=== PATIENT | female | born 1985 | race Caucasian/White ===

== ENCOUNTER 2020-09-11 10:57 | Outpatient (CLI) | payer OTHER ==
--- NOTE | 2020-09-11 11:40 | XRAY Report ---
PROCEDURE: Chest 2 View X-Ray INDICATIONS: PNEUMONIA TECHNIQUE: 2 view(s) of the chest. COMPARISON: None. FINDINGS: Surgical changes and devices: Bilateral chest wall clips are seen. Bilateral prior mastectomy is pres umed. There is a right-sided chest port, with the tip within the inferior aspect of the superior vena cava, near the cavoatrial junction. Lungs and pleura: No pleural effusions or pneumothorax. Lungs are clear. Mediastinum: Mediastinal contours are normal. Heart size is normal. Bones and chest wall: No suspicious bony abnormalities. S-shaped scoliotic curvature is incidentally noted. Soft tissues appear unremarkable. IMPRESSION: Clear lungs, without focal infiltrates. Right-sided chest port, with the tip within the inferior aspect of the superior vena cava. Chest wall postoperative changes are seen. Bilateral mastectomy is presumed. Reviewed by: Brigido Barakat MD on 09/11/2020 10:39 AM [facility] Approved by: Brigido Barakat MD on 09/11/2020 10:39 AM [facility] Station ID: [id number]
== END 2020-09-11 10:58 | disposition home or self-care (01) ==
LOC: DI.N 10:57
PROVIDERS: ATTEND Nurse Practitioner
DX: J18.9 Pneumonia, unspecified organism (principal); Z20.822 Contact with and (suspected) exposure to COVID-19; Z95.828 Presence of other vascular implants and grafts

== ENCOUNTER 2020-12-03 08:00 | Outpatient (CLI) | payer OTHER ==
--- NOTE | 2020-12-03 12:49 | XRAY Report ---
PROCEDURE: Chest 2 View X-Ray INDICATIONS: COUGH TECHNIQUE: 2 view(s) of the chest. COMPARISON: None. FINDINGS: Surgical changes and devices: Right chest wall Port-A-Cath tip is in the region of SVC. Surgical clip s are noted in bilateral chest wall and axilla. Lungs and pleura: No pleural effusions or pneumothorax. Lungs are clear. Mediastinum: Mediastinal contours are normal. Heart size is normal. Bones and chest wall: No suspicious bony abnormalities. Soft tissues appear unremarkable. IMPRESSION: No acute cardiopulmonary pathology. Reviewed by: Tejas Pyle MD on 12/03/2020 12:47 PM PDT Approved by: Tejas Pyle MD on 12/03/2020 12:47 PM PDT Station ID: [id number]
== END 2020-12-03 23:59 | disposition home or self-care (01) ==
LOC: DI.N 08:00
PROVIDERS: ATTEND Family Medicine
DX: R05.9 Cough, unspecified (principal)

== ENCOUNTER 2020-12-03 10:57 | Outpatient (CLI) | payer OTHER | END 2020-12-03 23:59 | disposition home or self-care (01) | LOC: LAB.N 10:57 | PROVIDERS: ATTEND Family Medicine | DX: R05.9 Cough, unspecified (principal); Z20.822 Contact with and (suspected) exposure to COVID-19 ==

== ENCOUNTER 2020-12-20 08:00 | Outpatient (CLI) | payer OTHER | END 2020-12-20 23:59 | disposition home or self-care (01) | LOC: LAB.N 08:00 | PROVIDERS: ATTEND Family Medicine | DX: R07.0 Pain in throat (principal); Z20.822 Contact with and (suspected) exposure to COVID-19 | CPT/HCPCS: 87070 ==

== ENCOUNTER 2022-02-21 10:05 | Outpatient (CLI) | payer OTHER ==
--- NOTE | 2022-02-21 18:23 | XRAY Report ---
PROCEDURE: Chest 1 View X-Ray INDICATIONS: PAIN IN RIGHT SHOULDER TECHNIQUE: One view of the chest was acquired. COMPARISON: None. FINDINGS: Surgical changes and devices: None. Lungs and pleura: No pleural effusions or pneumothorax. Lungs are clear. Mediastinum: Mediastinal contours appear normal. Heart size is normal. Bones and chest wall: No suspicious bony lesions. Overlying soft tissues appear unremarkable. Calc ific tendinitis is noted at the right shoulder. IMPRESSION: No acute pulmonary process. Reviewed by: Marta Godoy MD on 02/21/2022 6:21 PM PST Approved by: Marta Godoy MD on 02/21/2022 6:21 PM [facility] Station ID: [id number]
--- NOTE | 2022-02-21 18:23 | XRAY Report ---
PROCEDURE: Shoulder 3 View RT INDICATIONS: PAIN IN RIGHT SHOULDER TECHNIQUE: 3 views of the shoulder were acquired. COMPARISON: None. FINDINGS: Bones: No fractures or dislocations. No suspicious bony lesions. Visualized ribs appear intact. Soft tissues: No suspicious soft tissue calcifications. Right shoulder calcific tendinitis is prese nt. IMPRESSION: Right shoulder calcific tendinitis. Reviewed by: Marta Godoy MD on 02/21/2022 6:22 PM PST Approved by: Marta Godoy MD on 02/21/2022 6:22 PM PST Station ID: [id number]
== END 2022-02-21 10:06 | disposition home or self-care (01) ==
LOC: DI 10:05
PROVIDERS: ATTEND Nurse Practitioner
DX: M75.31 Calcific tendinitis of right shoulder (principal)

== ENCOUNTER 2022-02-21 17:44 | Emergency (ER) | payer OTHER ==
--- OUTSIDE RECORDS SUMMARY | 2022-02-21 18:00 | EXTERNAL MEDICAL SUMMARY RPT | Continuity of Care Document ---
:1985 Author Organization [facility] Address [address] [place] [address] Phone Care Team Providers Name Role Phone Maribel Oleary Unavailable Unavailable Allergies and Intolerances date description facility type (no date) No Known Drug Allergies [facility] (unkn own) Encounters No information. Functional Status No information. Immunizations No information. Medications No information. Problems date description facility 2022-02-21 00:00 Patient left before evaluation by [facility] Procedures No information. Results/Labs No information. Social History date description facility 2022-02-20 00:00 Never smoked tobacco (finding) [facility] Vital Signs date measurement value units 2022-02-20 00:00 BMI 22.1 kg/m2 2022-02-20 00:00 BP_diastolic 77 mmHg 2022-02-20 00:00 BP_systolic 139 mmHg 2022-02-20 00:00 heart_rate 105 /min 2022-02-20 00:00 height_metric 165.1 cm 2022-02-20 00:00 height_standard 65 in 2022-02-20 00:00 o2_saturation 100 % 2022-02-20 00:00 respiration_rate 16 /min 2022-02-20 00:00 temperature_metric 36.67 C 2022-02-20 00:00 temperature_standard 98 F 2022-02-20 00:00 weight_metric 60.32 kg 2022-02-20 00:00 weight_standard 132.98 lb
[2022-02-21] MEDS ORDERED: KETOROLAC 30 MG/ML VIAL IM STA (21:22)
--- NOTE | 2022-02-21 21:22 | ED Physician Documentation ---
History of Present Illness - Stated complaint Stated Complaint: R ARM PX - Chief complaint Chief Complaint: Ext Problem - History obtained from History obtained from: Patient - Additonal information Additional information: 36-year-old woman presents with new onset right shoulder pain for the past 2 days without specific injury. Had x-rays done today but does not know the results. Aching, constant, located in the shoulder and radiating downward, worse with range of motion. Review of Systems Musculoskeletal: reports: Joint pain PD PAST MEDICAL HISTORY - Past Medical History Past Medical History: Yes Cardiovascular: None Respiratory: Asthma Neuro: None Endocrine/Autoimmune: None GI: None ORGANISATION AND METHODS ANALYST: None : None HEENT: None Psych: None Musculoskeletal: None Derm: None - Past Surgical History Past Surgical History: Yes /ORGANISATION AND METHODS ANALYST: section - Present Medications Home Medications: Ambulatory Orders Medication Instructions Recorded Confirmed Acyclovir 400 mg PO DAILY 08/20/13 08/20/13 Albuterol [Ventolin Hfa] 1 puffs INH DAILY 08/20/13 08/20/13 predniSONE [Deltasone] 60 mg PO DAILY 5 Days tablet 08/20/13 Benzonatate [Tessalon Perle] 100 mg PO BID PRN #20 capsule 08/21/13 Ketorolac [Toradol] 10 mg PO Q6H PRN #30 tablet 02/21/22 - Allergies Allergies/Adverse Reactions: Allergies Allergy/AdvReac Type Severity Reaction Status Date / Time mirtazapine Allergy Anxiety Verified 02/21/22 17:52 paclitaxel Allergy Edema Verified 02/21/22 17:52 - Social History Does the pt smoke?: No Smoking Status: Never smoker Does the pt drink ETOH?: No - Immunizations Immunizations are current?: Yes - POLST Patient has POLST: No PD ED PE NORMAL - Vitals Vital signs reviewed: Yes - General General: Alert and oriented X 3, No acute distress, Well developed/nourished - HEENT HEENT: Atraumatic, PERRL, EOMI - Derm Derm: Normal color, Warm and dry - Extremities Extremities: Other (Right shoulder tender with range of motion. 2+ bilateral radial pulses. Normal sensation and movement) Results - Vitals Vitals: Vital Signs - 24 hr 02/21/22 02/21/22 17:47 21:06 Temperature 37.3 C Heart Rate 99 Respiratory 18 15 Rate Blood Pressure 124/95 H O2 Saturation 100 Oxygen O2 Source Room air PD Medical Decision Making - ED course ED course: 36-year-old woman presents with right Calcific tendinitis of shoulder on x-ray imaging done earlier today. Symptomatic care discussed and return precautions lavelle hatch. Plan to follow-up with primary care provider for referral to physical therapy as needed. Departure - Departure Disposition: Home, Self Care Clinical Impression: Calcific tendinitis, Shoulder pain Condition: Stable Instructions: ED Tendinitis Calcific Prescriptions: Ketorolac [Toradol] 10 mg PO Q6H PRN #30 tablet PRN Reason: Pain Comments: You are seen in the emergency department for positive tenderness to pressure. Please follow-up with your primary care provider for possible referral to physical therapy. Toradol, an antiinflammatory pain medicine was sent electronically to [facility] in [place]. Please return if you have new or worsening symptoms or other concerns.
[2022-02-21] MEDS ORDERED: CYCLOBENZAPRINE 10 MG Prepack 2 PO PRN (21:23)
[2022-02-21 21:45] VITALS: BP 119/79
== END 2022-02-21 21:47 | disposition home or self-care (01) ==
LOC: ED 17:44
DX: M75.31 Calcific tendinitis of right shoulder (principal)
CPT/HCPCS: 96372; 99283